=== PATIENT | female | born 1980 | race African-American/Black ===

== ENCOUNTER 2017-02-13 07:33 | Emergency (ER) | payer OTHER ==
[~2017-02-13] VITALS: Ht 170.2 cm; Wt 99.8 kg
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
[2017-02-13] MEDS ORDERED: HYDROcodone/APAP 5/325MG 1 TAB TABLET PO ONE (08:15)
[2017-02-13] MEDS ORDERED: DIPHTH,PERTUSS(ACELL),TET TOX 0.5 ML DISP.SYRIN. VAX IM ONE (08:15)
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
[2017-02-13] MEDS ORDERED: ACET-704 PO (11:08)
[2017-02-13 11:21] VITALS: BP 134/70
== END 2017-02-13 11:22 | disposition home or self-care (01) ==
LOC: ER 07:33
DX: S00.12XA Contusion of left eyelid and periocular area, initial encounter (principal); S00.11XA Contusion of right eyelid and periocular area, initial encounter; S20.211A Contusion of right front wall of thorax, initial encounter; S80.02XA Contusion of left knee, initial encounter; H11.33 Conjunctival hemorrhage, bilateral; I10 Essential (primary) hypertension; Z88.0 Allergy status to penicillin; Y08.89XA Assault by other specified means, initial encounter; Y93.84 Activity, sleeping; Y92.481 Parking lot as the place of occurrence of the external cause; Y99.8 Other external cause status
CPT/HCPCS: 70450; 70486; 71101; 73564; 99284-25

== ENCOUNTER 2017-03-28 18:33 | Emergency (ER) | payer OTHER ==
[~2017-03-28] VITALS: Ht 170.2 cm; Wt 107.0 kg
[~2017-03-28 18:33] MED LIST: ACET-704 PO
[2017-03-28 18:58] VITALS: BP 174/85
--- NOTE | 2017-03-28 19:31 | PHYS DOC ---
Past Medical History Past Medical History: Hypertension Past Surgical History: Other Additional Past Surgical Histo: cyst removal Alcohol Use: None Drug Use: None Adult General Chief Complaint Chief Complaint: ABSCESS HPI HPI Patient is a 36 year old female presents to the emergency department with a history of questionable abscess to the vaginal area. Patient states she has had one in the past in which they had to drain. Patient states she is able to locate the area when she is sitting down but unable to locate the area when she is lying down. She states sometimes she has difficulty with urination. Denies fever, chills nausea or vomiting. Review of Systems Review of Systems Constitutional: Denies fever or chills [] Eyes: Denies change in visual acuity, redness, or eye pain [] HENT: Denies nasal congestion or sore throat [] Respiratory: Denies cough or shortness of breath [] Cardiovascular: No additional information not addressed in HPI [] GI: Denies abdominal pain, nausea, vomiting, bloody stools or diarrhea [] : Denies dysuria or hematuria [] Musculoskeletal: Denies back pain or joint pain [] Integument: Denies rash or skin lesions [] Neurologic: Denies headache, focal weakness or sensory changes [] Endocrine: Denies polyuria or polydipsia [] Current Medications Current Medications Current Medications Medications (Trade) Dose Ordered Sig/Kassandra Start Time Stop Time Status Last Admin Dose Admin Azithromycin (Zithromax) 1,000 mg 1X ONCE 03/28/17 20:45 03/28/17 20:46 DC Ceftriaxone Sodium (Rocephin Im) 250 mg 1X ONCE 03/28/17 20:45 03/28/17 20:47 DC Metronidazole (Flagyl) 2,000 mg 1X ONCE 03/28/17 20:45 03/28/17 20:46 DC Allergies Allergies Allergies Coded Allergies Type Severity Reaction Last Updated Verified Penicillins Allergy Intermediate 02/13/17 Yes Physical Exam Physical Exam Constitutional: Well developed, well nourished, no acute distress, non-toxic appearance. [] HENT: Normocephalic, atraumatic, bilateral external ears normal, oropharynx moist, no oral exudates, nose normal. [] Eyes: PERRLA, EOMI, conjunctiva normal, no discharge. [] Neck: Normal range of motion, no tenderness, supple, no stridor. [] Cardiovascular:Heart rate regular rhythm, no murmur [] Lungs & Thorax: Bilateral breath sounds clear to auscultation [] Abdomen: Bowel sounds hypoactive, soft, no tenderness, no masses, no pulsatile masses. [] Skin: Warm, dry, no erythema, no rash. [] Back: No tenderness Extremities: No tenderness, no cyanosis, no clubbing, ROM intact, no edema. [] Neurologic: Alert and oriented X 3, normal motor function, normal sensory function, no focal deficits noted. [] Psychologic: Affect normal, judgement normal, mood normal. [] Perineal area with no abscess or abnormality noted. Vaginal exam with speculum exam no discharge noted. Manual exam with bilateral adnexal exam, CMT noted. Current Patient Data Vital Signs Vital Signs Date Time Temp Pulse Resp B/P (MAP) Pulse Ox O2 Delivery O2 Flow Rate FiO2 03/28/17 18:58 97.9 74 18 97 Room Air 97.9 Lab Values Laboratory Tests Test 03/28/17 19:26 Urine Collection Type Unknown Urine Color Yellow Urine Clarity Turbid Urine pH 6.0 Urine Specific [place] 1.025 Urine Protein 100 mg/dL (NEG-TRACE) Urine Glucose (UA) Negative mg/dL (NEG) Urine Ketones (Stick) Negative mg/dL (NEG) Urine Blood Moderate (NEG) Urine Nitrite Negative (NEG) Urine Bilirubin Negative (NEG) Urine Urobilinogen Dipstick 0.2 mg/dL (0.2 mg/dL) Urine Leukocyte Esterase Large (NEG) Urine RBC 6-10 /HPF (0-2) Urine WBC >40 /HPF (0-4) Urine Squamous Epithelial Cells Many /LPF Urine Bacteria Many /HPF (0-FEW) Urine Mucus Mod /LPF Urine Trichomonas Present EKG EKG [] Radiology/Procedures Radiology/Procedures [] Course & Med Decision Making Course & Med Decision Making Pertinent Labs and Imaging studies reviewed. (See chart for details) Patient was recommended to follow-up with an [employer] [employer] in regards to possible prolapse vaginal area. Patient's urine was also be tested for urinary tract infection. Patient urine was positive for urinary tract infection, it was also positive for Trichomonas. Spoke with patient regards to urine results. She would like to be checked for other sexually transmitted infections. Spoke with patient regards to further treatment as we will provide her treatment for STDs. She'll be provided with a Rocephin injection, Flagyl, and Zithromax. She will be discharged home on Macrobid. Recommended plenty of fluids such as water and cranberry juice. Avoid cranberry juice cocktail carbonate beverages citrus fruits and alcohol. Avoid sexual intercourse for the next 2 weeks. You will need to also notify her partner that you positive for Trichomonas and have been treated for other sexually transmitted infection. Do not have sexual intercourse with her partners until they have been treated as well. Signs and symptoms to return back to the emergency department has been provided. Patient agrees with discharge instructions treatment regimens and follow-up recommendations. [] Dragon Disclaimer Dragon Disclaimer This electronic medical record was generated, in whole or in part, using a voice recognition dictation system. Departure Departure Impression: Primary Impression: UTI (urinary tract infection) Additional Impressions: Infection due to trichomonas PID (acute pelvic inflammatory disease) Disposition: HOME, SELF-CARE Condition: STABLE Referrals: NO PCP (PCP) Patient Instructions: Pelvic Inflammatory Disease, [id number], Trichomoniasis -Brief, Urinary Tract Infection, [id number] Additional Instructions: Activity as tolerated Medication as prescribed Drink plenty of fluids such as water and cranberry juice Avoid cranberry juice cocktail, carbonated beverages, citrus fruits, caffeine and alcohol as these are considered irritants to the bladder. Avoid sexual intercourse for the next 2 weeks Notify your sex partners to let them know you have been treated for sexually transmitted infection NO sexual intercourse with your partner until he has been treated for 2 weeks Followup with primary care provider in 7-10 days Followup with [facility] [employer] in 5-7 days Return to emergency department as needed for signs and symptoms that become worse. Scripts Doxycycline Hyclate (DOXYCYCLINE HYCLATE) 100 Mg Capsule 1 CAP PO BID, #28 CAP Prov: RONALDO SMITH INTERIOR DESIGN CONSULTANT 03/28/17 Nitrofurantoin Monohyd/M-Cryst (MACROBID 100 MG CAPSULE) 100 Mg Capsule 1 CAP PO BID, #14 CAP Prov: RONALDO SMITH INTERIOR DESIGN CONSULTANT 03/28/17 Problem Qualifiers RONALDO SMITH INTERIOR DESIGN CONSULTANT Mar 28, 2017 19:31
[2017-03-28 20:11] LABS: BILIRUBIN,URINE NEGATIVE (NEG); GLUCOSE,URINE NEGATIVE (NEG); NITRITE,URINE NEGATIVE (NEG); PROTEIN,URINE 100 mg/dL (NEG-TRACE); UROBILINOGEN,URINE 0.2 mg/dL (0.2 mg/dL)
[2017-03-28 20:33] LABS: BACTERIA,URINE MANY /HPF (0-FEW); SQUAMOUS EPITHELIAL CELL,UR MANY /LPF; TRICHOMONAS,URINE PRESENT; WBC,URINE >40 /HPF (0-4)
[2017-03-28] MEDS ORDERED: metroNIDAZOLE 500 MG TABLET PO ONE (20:45)
[2017-03-28] MEDS ORDERED: cefTRIAXone IM 250 MG VIAL IM ONE (20:45)
[2017-03-28] MEDS ORDERED: AZITHROMYCIN 250 MG TABLET. PO ONE (20:45)
[2017-03-28] MEDS ORDERED: NITR100C62 PO (20:50)
[2017-03-28] MEDS ORDERED: DOXY100C2 PO (21:28)
[2017-03-28] MEDS ORDERED: IBUPROFEN 800 MG TABLET. PO ONE (22:30)
== END 2017-03-28 22:24 | disposition home or self-care (01) ==
LOC: ER 18:33
DX: N39.0 Urinary tract infection, site not specified (principal); A59.09 Other urogenital trichomoniasis; N73.9 Female pelvic inflammatory disease, unspecified; I10 Essential (primary) hypertension; Z88.0 Allergy status to penicillin
CPT/HCPCS: 81001; 87086; 87491; 87591; 96372; 99284; J0696; Q0144

== ENCOUNTER 2017-06-13 23:02 | Emergency (ER) | payer OTHER ==
[~2017-06-13] VITALS: Ht 152.4 cm; Wt 107.0 kg
[~2017-06-13 23:02] MED LIST changes: +DOXY100C2 PO; +NITR100C62 PO
[2017-06-13 23:22] VITALS: BP 152/92
[2017-06-13] MEDS ORDERED: HYDROcodone/CHLORPHEN POLIS 5 ML SUS.ER.12H PO ONE (23:45)
[2017-06-13] MEDS ORDERED: ACETAMINOPHEN 500 MG TABLET PO ONE (23:45)
[2017-06-14] MEDS ORDERED: BENZ100C PO (00:07)
[2017-06-14] MEDS ORDERED: AZIT250T PO (00:07)
[2017-06-14] MEDS ORDERED: PROAIR RESPICL90 MCG IH (00:07)
[2017-06-14] MEDS ORDERED: PRED50TA PO (00:07)
--- NOTE | 2017-06-14 00:07 | PHYS DOC ---
Past Medical History Past Medical History: Hypertension Past Surgical History: Other Additional Past Surgical Histo: cyst removal Alcohol Use: None Drug Use: None Adult General Chief Complaint Chief Complaint: Congestion HPI HPI Patient is a 36 year old female who presents with cough, nasal congestion, right ear pain for three days. She has hx of smoking and HTN. Review of Systems Review of Systems Constitutional: fever Eyes: Denies change in visual acuity, redness, or eye pain [] HENT: nasal congestion right ear pain Respiratory: cough Cardiovascular: No additional information not addressed in HPI [] GI: Denies abdominal pain, nausea, vomiting, bloody stools or diarrhea [] : Denies dysuria or hematuria [] Musculoskeletal: Denies back pain or joint pain [] Integument: Denies rash or skin lesions [] Neurologic: Denies headache, focal weakness or sensory changes [] Endocrine: Denies polyuria or polydipsia [] Current Medications Current Medications Current Medications Medications (Trade) Dose Ordered Sig/Kassandra Start Time Stop Time Status Last Admin Dose Admin Acetaminophen (Tylenol) 1,000 mg 1X ONCE 06/13/17 23:45 06/13/17 23:46 DC 06/13/17 23:47 1,000 MG Chlorphenir/ Hydrocodone Polistirex (Tussionex) 5 ml 1X ONCE 06/13/17 23:45 06/13/17 23:46 DC 06/13/17 23:47 5 ML Allergies Allergies Allergies Coded Allergies Type Severity Reaction Last Updated Verified Penicillins Allergy Intermediate Rash 04/12/17 Yes Physical Exam Physical Exam Constitutional: Well developed, well nourished, no acute distress, non-toxic appearance. [] HENT: Normocephalic, atraumatic, bilateral external ears normal, oropharynx moist, no oral exudates, Right TM is mildly injected. Patient sounds congested nasally. Eyes: PERRLA, EOMI, conjunctiva normal, no discharge. [] Neck: Normal range of motion, no tenderness, supple, no stridor. [] Cardiovascular:Heart rate regular rhythm, no murmur [] Lungs & Thorax: Bilateral breath sounds clear to auscultation [] Abdomen: Bowel sounds normal, soft, no tenderness, no masses, no pulsatile masses. [] Skin: Warm, dry, no erythema, no rash. [] Back: No tenderness, no CVA tenderness. [] Extremities: No tenderness, no cyanosis, no clubbing, ROM intact, no edema. [] Neurologic: Alert and oriented X 3, normal motor function, normal sensory function, no focal deficits noted. [] Psychologic: Affect normal, judgement normal, mood normal. [] Current Patient Data Vital Signs Vital Signs Date Time Temp Pulse Resp B/P (MAP) Pulse Ox O2 Delivery O2 Flow Rate FiO2 06/13/17 23:47 18 99 Room Air 06/13/17 23:22 100.1 90 100.1 EKG EKG [] Radiology/Procedures Radiology/Procedures [] Course & Med Decision Making Course & Med Decision Making Pertinent Labs and Imaging studies reviewed. (See chart for details) Patient has a bronchitis, URI, fever, and right otitis media. Temperature in the ED was 100.1. Patient was given Tylenol. Patient was encouraged to consider smoking cessation. She was discharged with azithromycin,prednisone, Tessalon Perles and albuterol inhaler. She is encouraged to follow-up with her doctor in the next 7 days. Tylenol/ Motrin for pain or fever. Dragon Disclaimer Dragon Disclaimer This electronic medical record was generated, in whole or in part, using a voice recognition dictation system. Departure Departure Impression: Primary Impression: Acute bronchitis Additional Impressions: Fever Upper respiratory infection Otitis media Smoking addiction Disposition: 01 HOME, SELF-CARE Condition: STABLE Referrals: NO PCP (PCP) follow up with your doctor in one week Patient Instructions: Acute Bronchitis, Fever, Adult, [id number], Otitis Media, Adult, Smoking Cessation Additional Instructions: You were seen for bronchitis, upper respiratory infection fever and ear infection. Consider smoking cessation. Take Tylenol every 4 hours and Motrin every 6 hours for fever. Push fluids. Complete your antibiotics and use the rest of the medications as prescribed. Follow-up with your doctor in the next 7 days. Scripts Prednisone (PREDNISONE) 50 Mg Tablet 1 TAB PO DAILY, #5 TAB Prov: MICKYAEARL TERMINAL OPERATIONS SUPERVISOR 06/14/17 Benzonatate (TESSALON PERLE) 100 Mg Capsule 1 CAP PO TID, #30 CAP Prov: MUTUNGAEARL TERMINAL OPERATIONS SUPERVISOR 06/14/17 Azithromycin (ZITHROMAX) 250 Mg Tablet 1 PKG PO UD, #1 PKG Prov: MUTUNGA,EARL TERMINAL OPERATIONS SUPERVISOR 06/14/17 Albuterol Sulfate (Proair Respiclick) 90 Mcg Aer.pow.ba 1 PUFF IH PRN Q6HRS Y for SHORTNESS OF BREATH, #1 INHALER Prov: EARL CAPPS APRN 06/14/17 Problem Qualifiers Primary Impression: Acute bronchitis Bronchitis organism: unspecified organism Qualified Codes: J20.9 - Acute bronchitis, unspecified Additional Impressions: Fever Fever type: unspecified Qualified Codes: R50.9 - Fever, unspecified Upper respiratory infection URI type: unspecified URI Qualified Codes: J06.9 - Acute upper respiratory infection, unspecified Otitis media Otitis media type: other nonsuppurative Chronicity: acute Laterality: right Recurrence: not specified as recurrent Qualified Codes: H65.191 - Other acute nonsuppurative otitis media, right ear EARL CAPPS APRN Jun 14, 2017 00:07
== END 2017-06-14 00:15 | disposition home or self-care (01) ==
LOC: ER 23:02
DX: J20.9 Acute bronchitis, unspecified (principal); J06.9 Acute upper respiratory infection, unspecified; H66.91 Otitis media, unspecified, right ear; R50.9 Fever, unspecified; I10 Essential (primary) hypertension; F17.200 Nicotine dependence, unspecified, uncomplicated; Z88.0 Allergy status to penicillin
CPT/HCPCS: 99283

== ENCOUNTER 2017-10-06 04:49 | Emergency (ER) | payer OTHER ==
[2017-10-06] MEDS: IV NORMAL SALINE 1000ML BAG 1,000 ML IV (06:32)
[2017-10-06 06:35] LABS: ADD MAN DIFF? NO
[2017-10-06 06:42] LABS: BASO # 0.1 x10^3/uL (0.0-0.2); BASO % 1 % (0-3); EOS % 2 % (0-3); HEMATOCRIT 38.2 % (36.0-47.0); HEMOGLOBIN 12.7 g/dL (12.0-15.5); LYMPH # 3.5 x10^3/uL (1.0-4.8); LYMPH % 46 % (24-48); MEAN CORPUSCULAR HEMOGLOBIN 28 pg (25-35); MEAN CORPUSCULAR HGB CONC 33 g/dL (31-37); MEAN CORPUSCULAR VOLUME 85 fL (79-100); MONO % 6 % (0-9); NEUT % 46 % (31-73); PLATELET COUNT 227 x10^3/uL (140-400); RED CELL DISTRIBUTION WIDTH 13.9 % (11.5-14.5); WHITE BLOOD COUNT 7.8 x10^3/uL (4.0-11.0)
[2017-10-06 07:00] LABS: ANION GAP 9 (6-14); BLOOD UREA NITROGEN 12 mg/dL (7-20); CALCIUM 8.6 mg/dL (8.5-10.1); CARBON DIOXIDE 29 mmol/L (21-32); CHLORIDE 103 mmol/L (98-107); CREATININE 0.8 mg/dL (0.6-1.0); GFR 98.8; GLUCOSE 184 mg/dL (70-99); SODIUM 141 mmol/L (136-145)
[2017-10-06 07:00] LABS: C-REACTIVE PROTEIN 14.4 mg/L (0-3.3)
[2017-10-06 07:52] LABS: SEDIMENTATION RATE 25 (0-25)
== END 2017-10-06 07:36 | disposition home or self-care (01) ==
LOC: ER 04:49
DX: L03.115 Cellulitis of right lower limb (principal); R73.9 Hyperglycemia, unspecified; J45.909 Unspecified asthma, uncomplicated; I10 Essential (primary) hypertension; Z88.0 Allergy status to penicillin
CPT/HCPCS: 36415; 80048; 85025; 85651; 86140; 96360; 99284-25; J7030

== ENCOUNTER 2017-10-16 19:39 | Emergency (ER) | payer OTHER | END 2017-10-16 20:47 | disposition home or self-care (01) | LOC: ER 19:39 | DX: S02.5XXA Fracture of tooth (traumatic), initial encounter for closed fracture (principal); I10 Essential (primary) hypertension; J45.909 Unspecified asthma, uncomplicated; Z88.0 Allergy status to penicillin; X58.XXXA Exposure to other specified factors, initial encounter; Y93.89 Activity, other specified; Y99.8 Other external cause status; Y92.89 Other specified places as the place of occurrence of the external cause | CPT/HCPCS: 99283 ==

== ENCOUNTER 2020-04-08 14:14 | Emergency (ER) | payer SELFPAY ==
[~2020-04-08] VITALS: Ht 170.2 cm; Wt 100.0 kg
[~2020-04-08 14:14] MED LIST changes: +AZIT250T PO; +BENZ100C PO; +HYDR-3164 PO; +PRED50TA PO; +PROAIR RESPICL90 MCG IH
[2020-04-08 14:31] VITALS: BP 126/71
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
== END 2020-04-08 16:39 | disposition home or self-care (01) ==
LOC: ER 14:14
DX: M79.631 Pain in right forearm (principal); R60.0 Localized edema; M25.521 Pain in right elbow; M25.511 Pain in right shoulder; J45.909 Unspecified asthma, uncomplicated; I10 Essential (primary) hypertension; F17.200 Nicotine dependence, unspecified, uncomplicated; Z98.890 Other specified postprocedural states; Z88.0 Allergy status to penicillin
CPT/HCPCS: 73060; 73070; 73090; 99284